=== PATIENT | male | born 1935 | race Caucasian/White ===

== ENCOUNTER 2018-08-26 01:56 | Emergency (ER) | payer OTHER ==
[2018-08-26 02:40] LABS: Absolute Lymphocytes (CBC) 0.9 K/uL (0.7-4.9); Absolute Monocytes 0.2 K/uL (0.1-1.3); Absolute Neutrophil 4.6 K/uL (1.8-8.0); Basophils % 1.7 % (0-1.3); Eosinophils % 1.2 % (0-4.4); Hematocrit 43.5 % (39.6-49.0); Lymphocytes % 14.5 % (15.3-44.8); MPV 8.6 fL (7.6-11.3); Monocytes % 4.1 % (3.3-12.3); RBC Red Blood Cell Count 4.99 M/uL (4.33-5.43)
[2018-08-26] MEDS ORDERED: ONDANSETRON 4 MG/2 ML VIAL ONE (02:46)
[2018-08-26 02:53] LABS: Protime INR 1.03
[2018-08-26] MEDS ORDERED: FAMOTIDINE 20 MG/2 ML VIAL IV ONE (02:55)
[2018-08-26] MEDS ORDERED: NA CHLORIDE 0.9% 1,000 ML ONE (02:55)
[2018-08-26 03:07] LABS: Alkaline Phosphatase 244 U/L (45-117); BUN Blood Urea Nitrogen 23 mg/dL (7-18); Bicarbonate 25 mmol/L (21-32); Bilirubin Direct 0.9 mg/dL (0-0.2); Bilirubin Total 1.7 mg/dL (0.2-1.0); Glucose Level 160 mg/dL (74-106); Lipase 58 U/L (73-393); Magnesium 2.1 mg/dL (1.8-2.4); NT PRO-BNP 1473 pg/mL (<450); Protein, Total 8.2 g/dL (6.4-8.2); Sodium Level 137 mmol/L (136-145); Troponin (Emerg Dept Use Only) < 0.02 ng/mL (0.0-0.045)
[2018-08-26 03:09] LABS: ALT/SGPT 439 U/L (12-78); AST/SGOT 602 U/L (15-37)
--- NOTE | 2018-08-26 03:18 | EDPHYS ---
Physician Documentation [facility] Name: Josue Saucedo Age: 82 yrs Sex: Male : 1935 Arrival Date: 08/26/2018 Time: 01:57 Bed 8 Private MD: ED Physician Donnie Piña HPI: 08/26 02:42 This 82 yrs old Male presents to ER via Wheelchair with complaints of Chest luis angel Pain. 02:42 The patient or guardian reports chest pain that is located primarily in the epigastric luis angel area. Onset: last night. The pain does not radiate. Associated signs and symptoms: The patient has no apparent associated signs or symptoms. The chest pain is described as aching. Duration: The patient or guardian reports a single episode, that is still ongoing, and unchanged. Modifying factors: The symptoms are alleviated by nothing. the symptoms are aggravated by nothing. Severity of pain: At its worst the pain was mild moderate in the emergency department the pain is unchanged. The patient has not experienced similar symptoms in the past. Historical: - Allergies: 02:11 No Known Allergies; ak1 - Home Meds: 02:19 amlodipine 10 mg tab 1 tab once daily [Active]; aspirin 81 mg Oral chew 1 tab once ak1 daily [Active]; atorvastatin 40 mg Oral tab 1 tab bedtime [Active]; hydralazine 25 mg Oral tab 1 tab 2 times per day [Active]; lactulose 10 gram/15 mL (15 mL) Oral soln 15 mL PRN [Active]; nitroglycerin 0.4 mg SL subl 1 tab PRN [Active]; terazosin 2 mg Oral cap 1 cap bedtime [Active]; zolpidem 5 mg Oral tab 1 tab bedtime [Active]; Metoprolol Tartrate Oral PRN [Active]; Plavix 75 mg Oral tab 1 tab once daily [Active]; - PMHx: 02:11 CAD; Hypertension; Myocardial infarction; High Cholesterol; ak1 - PSHx: 02:11 Heart stents; bilateral knee replacements; prostate; left eye sx; left middle finger ak1 amputation.; - Immunization history:: Adult Immunizations up to date. - Social history:: Smoking status: Patient/guardian denies using tobacco. - Ebola Screening: : No symptoms or risks identified at this time. - Family history:: not pertinent. ROS: 02:42 Constitutional: Negative for fever, chills, and weight loss, Eyes: Negative for injury, luis angel pain, redness, and discharge, ENT: Negative for injury, pain, and discharge, Neck: Negative for injury, pain, and swelling, Respiratory: Negative for shortness of breath, cough, wheezing, and pleuritic chest pain, Back: Negative for injury and pain, : Negative for injury, bleeding, discharge, and swelling, MS/Extremity: Negative for injury and deformity, Skin: Negative for injury, rash, and discoloration, Neuro: Negative for headache, weakness, numbness, tingling, and seizure, Psych: Negative for depression, anxiety, suicide ideation, homicidal ideation, and hallucinations, Allergy/Immunology: Negative for hives, rash, and allergies, Endocrine: Negative for neck swelling, polydipsia, polyuria, polyphagia, and marked weight changes, Hematologic/Lymphatic: Negative for swollen nodes, abnormal bleeding, and unusual bruising. 02:42 Cardiovascular: Positive for 02:42 Abdomen/GI: Positive for abdominal pain, nausea, vomiting, of the epigastric area, right upper quadrant and left upper quadrant. Exam: 02:42 Constitutional: This is a well developed, well nourished patient who is awake, alert, luis angel and in no acute distress. Head/Face: Normocephalic, atraumatic. Eyes: Pupils equal round and reactive to light, extra-ocular motions intact. Lids and lashes normal. Conjunctiva and sclera are non-icteric and not injected. Cornea within normal limits. Periorbital areas with no swelling, redness, or edema. ENT: Nares patent. No nasal discharge, no septal abnormalities noted. Tympanic membranes are normal and external auditory canals are clear. Oropharynx with no redness, swelling, or masses, exudates, or evidence of obstruction, uvula midline. Mucous membranes moist. Neck: Trachea midline, no thyromegaly or masses palpated, and no cervical lymphadenopathy. Supple, full range of motion without nuchal rigidity, or vertebral point tenderness. No Meningismus. Chest/axilla: Normal chest wall appearance and motion. Nontender with no deformity. No lesions are appreciated. Respiratory: Lungs have equal breath sounds bilaterally, clear to auscultation and percussion. No rales, rhonchi or wheezes noted. No increased work of breathing, no retractions or nasal flaring. Back: No spinal tenderness. No costovertebral tenderness. Full range of motion. Male : Normal genitalia with no discharge or lesions. Skin: Warm, dry with normal turgor. Normal color with no rashes, no lesions, and no evidence of cellulitis. MS/ Extremity: Pulses equal, no cyanosis. Neurovascular intact. Full, normal range of motion. Neuro: Awake and alert, GCS 15, oriented to person, place, time, and situation. Cranial nerves II-XII grossly intact. Motor strength 5/5 in all extremities. Sensory grossly intact. Cerebellar exam normal. Normal gait. Psych: Awake, alert, with orientation to person, place and time. Behavior, mood, and affect are within normal limits. 02:42 Cardiovascular: Rate: tachycardic, Rhythm: irregularly irregular, Pulses: Pulses are 4+ in bilateral radial, brachial, femoral, popliteal, posterior tibial and and dorsalis pedis arteries.. Heart sounds: normal, Edema: is not appreciated, JVD: is not appreciated. Vital Signs: 02:11 BP 145 / 75; Pulse 103; Resp 20; Temp 97.6(O); Pulse Ox 97% on R/A; Weight 95.25 kg ak1 (R); Height 5 ft. 5 in. (165.10 cm) (R); Pain 5/10; 02:33 BP 145 / 76; Pulse 106; Resp 22; Temp 99; Pulse Ox 96% on R/A; ak1 03:06 BP 154 / 81; Pulse 103; Resp 25; Temp 99.4; Pulse Ox 97% on 2 lpm NC; ak1 05:48 BP 120 / 72; Pulse 102; Resp 20; Temp 99.6; Pulse Ox 97% on 2 lpm NC; ak1 02:11 Body Mass Index 34.95 (95.25 kg, 165.10 cm) ak1 MDM: 02:35 Patient medically screened. [facility] 02:47 Data reviewed: vital signs, nurses notes, lab test result(s), EKG, radiologic studies, [facility] CT scan, plain films. 08/26 02:11 Order name: Basic Metabolic Panel; Complete Time: 03:11 ms 08/26 02:11 Order name: CBC with Diff; Complete Time: 03:11 ms 08/26 02:11 Order name: LFT's; Complete Time: 03:11 ms 08/26 02:11 Order name: Magnesium; Complete Time: 03:11 ms 08/26 02:11 Order name: NT PRO-BNP; Complete Time: 03:11 ms 08/26 02:11 Order name: PT-INR; Complete Time: 03:11 ms 08/26 02:11 Order name: Troponin (emerg Dept Use Only); Complete Time: 03:11 ms 08/26 02:11 Order name: XRAY Chest (1 view) ut 08/26 02:42 Order name: Urine Culture [facility] 08/26 02:42 Order name: CT Abd/Pelvis - W/Contrast [facility] 08/26 02:55 Order name: Lipase; Complete Time: 03:11 EDMS 08/26 02:11 Order name: EKG; Complete Time: 02:11 ms 08/26 02:11 Order name: Cardiac monitoring; Complete Time: 02:11 ms 08/26 02:11 Order name: EKG - Nurse/Tech; Complete Time: 02:11 ms 08/26 02:11 Order name: IV Saline Lock; Complete Time: 02:11 ms 08/26 02:11 Order name: Labs collected and sent; Complete Time: 02:11 ms 08/26 02:11 Order name: O2 Per Protocol; Complete Time: 02:11 ms 08/26 02:11 Order name: O2 Sat Monitoring; Complete Time: 02:11 ms 08/26 02:12 Order name: Urine Dipstick-Ancillary (obtain specimen); Complete Time: 04:41 ms Administered Medications: 02:39 Drug: Zofran 4 mg Route: IVP; Site: right antecubital; ak1 02:40 Follow up: Response: No adverse reaction ak1 02:51 Drug: Pepcid 20 mg Route: IVP; Site: right antecubital; ak1 02:51 Follow up: Response: No adverse reaction ak1 02:51 Drug: NS 0.9% 1000 ml Route: IV; Rate: 125 ml/hr; Site: right antecubital; ak1 05:50 Follow up: IV Status: Infusion continued upon transfer ak1 03:26 Drug: Zosyn 3.375 grams Route: IVPB; Infused Over: 60 mins; Site: right antecubital; ak1 05:50 Follow up: IV Status: Completed infusion; IV Intake: 100ml ak1 Disposition: 08/26/18 03:17 Transfer ordered to [facility]. Diagnosis are Abdominal tenderness, Cholecystitis, Cholelithiasis. - Reason for transfer: Higher level of care. - Accepting physician is to [facility]. - Condition is Stable. - Problem is new. - Symptoms have improved. Signatures: Dispatcher [employer] EDMN Donnie Piña MD MD cha Solis, Maria ms Krenek, Amber, RN RN ak1 Corrections: (The following items were deleted from the chart) 02:55 02:42 LIPASE+C.LAB.BRZ ordered. [facility] EDMN 06:47 03:17 08/26/2018 03:17 Transfer ordered to [facility]. Diagnosis is ak1 Abdominal tenderness; Cholecystitis; Cholelithiasis. Reason for transfer: Higher level of care. Accepting physician is to [facility]. Condition is Stable. Problem is new. Symptoms have improved. luis angel
--- NOTE | 2018-08-26 03:18 | ER ---
Nurse's Notes [facility] Name: Josue Saucedo Age: 82 yrs Sex: Male : 1935 Arrival Date: 08/26/2018 Time: 01:57 Bed 8 Private MD: Diagnosis: Abdominal tenderness;Cholecystitis;Cholelithiasis Presentation: 08/26 02:07 Presenting complaint: Patient states: upper abd pain since 1999. pt denies N/V/D. ak1 Transition of care: patient was not received from another setting of care. Onset of symptoms was August 26, 2018. Risk Assessment: Do you want to hurt yourself or someone else? Patient reports no desire to harm self or others. Initial Sepsis Screen: Does the patient meet any 2 criteria? No. Patient's initial sepsis screen is negative. Does the patient have a suspected source of infection? No. Patient's initial sepsis screen is negative. Care prior to arrival: None. 02:07 Method Of Arrival: Wheelchair ak1 02:07 Acuity: LAMINE 3 ak1 02:21 Note pt took 0.4SL nitro at 0100. ak1 Triage Assessment: 02:19 General: Appears uncomfortable, Behavior is calm, cooperative. Pain: Pain began 1999 ak1 tonight. pt took 0.4 SL nitro at 0100. EENT: No signs and/or symptoms were reported regarding the EENT system. Neuro: No deficits noted. Cardiovascular: Reports upper abd pain. pt took 0.4 SL nitro at 0100. Respiratory: No deficits noted. GI: Abdomen is round non-distended, Bowel sounds present X 4 quads. Abd is soft and non tender X 4 quads. Patient currently denies constipation, diarrhea, nausea, vomiting. : No signs and/or symptoms were reported regarding the genitourinary system. Derm: No signs and/or symptoms reported regarding the dermatologic system. Musculoskeletal: No signs and/or symptoms reported regarding the musculoskeletal system. Historical: - Allergies: 02:11 No Known Allergies; ak1 - Home Meds: 02:19 amlodipine 10 mg tab 1 tab once daily [Active]; aspirin 81 mg Oral chew 1 tab once ak1 daily [Active]; atorvastatin 40 mg Oral tab 1 tab bedtime [Active]; hydralazine 25 mg Oral tab 1 tab 2 times per day [Active]; lactulose 10 gram/15 mL (15 mL) Oral soln 15 mL PRN [Active]; nitroglycerin 0.4 mg SL subl 1 tab PRN [Active]; terazosin 2 mg Oral cap 1 cap bedtime [Active]; zolpidem 5 mg Oral tab 1 tab bedtime [Active]; Metoprolol Tartrate Oral PRN [Active]; Plavix 75 mg Oral tab 1 tab once daily [Active]; - PMHx: 02:11 CAD; Hypertension; Myocardial infarction; High Cholesterol; ak1 - PSHx: 02:11 Heart stents; bilateral knee replacements; prostate; left eye sx; left middle finger ak1 amputation.; - Immunization history:: Adult Immunizations up to date. - Social history:: Smoking status: Patient/guardian denies using tobacco. - Ebola Screening: : No symptoms or risks identified at this time. - Family history:: not pertinent. Screenin:21 Abuse screen: Denies threats or abuse. Denies injuries from another. Nutritional ak1 screening: No deficits noted. Tuberculosis screening: No symptoms or risk factors identified. Fall Risk None identified. Assessment: 02:22 Pain: Pain does not radiate. ak1 02:22 Reassessment: Patient appears in no apparent distress at this time. No changes from ak1 previously documented assessment. see triage assessment. 02:39 Reassessment: pt began vomiting, ERP notified and at beside for assessment. ak1 03:27 Reassessment: pt drinking oral contrast. ak1 04:01 Reassessment: pt in CT. ak1 05:49 Reassessment: Patient appears in no apparent distress at this time. No changes from ak1 previously documented assessment. Patient and/or family updated on plan of care and expected duration. Pain level reassessed. Patient is alert, oriented x 3, equal unlabored respirations, skin warm/dry/pink. Patient states symptoms have improved. Vital Signs: 02:11 BP 145 / 75; Pulse 103; Resp 20; Temp 97.6(O); Pulse Ox 97% on R/A; Weight 95.25 kg ak1 (R); Height 5 ft. 5 in. (165.10 cm) (R); Pain 5/10; 02:33 BP 145 / 76; Pulse 106; Resp 22; Temp 99; Pulse Ox 96% on R/A; ak1 03:06 BP 154 / 81; Pulse 103; Resp 25; Temp 99.4; Pulse Ox 97% on 2 lpm NC; ak1 05:48 BP 120 / 72; Pulse 102; Resp 20; Temp 99.6; Pulse Ox 97% on 2 lpm NC; ak1 02:11 Body Mass Index 34.95 (95.25 kg, 165.10 cm) ak1 ED Course: 01:57 Patient arrived in ED. ag3 02:07 Neha Jang, RN is Primary Nurse. ak1 02:07 Triage completed. ak1 02:11 Arm band placed on Patient placed in an exam room, on a stretcher, Patient notified of ak1 wait time. EKG completed in triage. Results shown to MD. 02:14 Inserted saline lock: 20 gauge in right antecubital area, using aseptic technique. ea Blood collected. 02:19 EKG done, by ED staff. Patient maintains SpO2 saturation greater than 95% on room air. ak1 02:22 Patient has correct armband on for positive identification. Placed in gown. Bed in low ak1 position. Call light in reach. Side rails up X 1. Adult w/ patient. monitoring and evaluation advisor on. Pulse ox on. NIBP on. Door closed. Warm blanket given. 02:24 X-ray completed. Portable x-ray completed in exam room. Patient tolerated procedure kw well. 02:25 XRAY Chest (1 view) In Process Unspecified. EDMS 02:32 Donnie Piña MD is Attending Physician. [facility] 03:10 Notified ED physician of a critical lab result(s). AST \T\ ALT. jd3 03:56 CT Abd/Pelvis - W/Contrast In Process Unspecified. EDMS 04:09 CT completed. Patient tolerated procedure well. Patient moved to CT via stretcher. vm2 Patient moved back from CT. 04:22 No provider procedures requiring assistance completed. Patient transferred, IV remains ak1 in place. Administered Medications: 02:39 Drug: Zofran 4 mg Route: IVP; Site: right antecubital; ak1 02:40 Follow up: Response: No adverse reaction ak1 02:51 Drug: Pepcid 20 mg Route: IVP; Site: right antecubital; ak1 02:51 Follow up: Response: No adverse reaction ak1 02:51 Drug: NS 0.9% 1000 ml Route: IV; Rate: 125 ml/hr; Site: right antecubital; ak1 05:50 Follow up: IV Status: Infusion continued upon transfer ak1 03:26 Drug: Zosyn 3.375 grams Route: IVPB; Infused Over: 60 mins; Site: right antecubital; ak1 05:50 Follow up: IV Status: Completed infusion; IV Intake: 100ml ak1 Intake: 05:50 IV: 100ml; Total: 100ml. ak1 Outcome: 03:17 ER care complete, transfer ordered by MD. plasencia 06:47 Patient left the ED. ak1 Signatures: Dispatcher [employer] EDMS Donnie Piña MD MD cha Whitley, Kimberlee kw Krenek, Amber RN RN ak1 Megha Farrar Elena, RN RN ea Davies, Jonathon, RN RN jd3 Gomez, Alice ag3
[2018-08-26] MEDS ORDERED: PIPER/TAZO/NS 3.375gm 3.375 GM/100 ML BAG ONE (03:24)
--- NOTE | 2018-08-26 06:25 | EKG ---
Test Date: 2018-08-26 Test Time: 02:07:10 Chimney Mechanic: MEASUREMENT RESULTS: Intervals: Rate: 92 [place]: QRSD: 134 QT: 376 QTc: 464 [place]: P: [place]: QRS: -37 T: 0 INTERPRETIVE STATEMENTS: Atrial flutter with variable AV block with premature ventricular or aberrantly conducted complexes Left axis deviation Nonspecific intraventricular block Inferior infarct, age undetermined Cannot rule out Anterior infarct, age undetermined Abnormal ECG Compared to ECG 07/20/2016 05:31:15 Ventricular premature complex(es) now present Sinus bradycardia no longer present First degree AV block no longer present ST (T wave) deviation no longer present Possible ischemia no longer present Myocardial infarct finding still present Electronically Signed On 08-26-18 06:24:39 MINE EXPLORATION ENGINEER by Cj Pizano
[2018-08-26 06:58] VITALS: O2SAT 97
[2018-08-26 06:59] VITALS: BP 120/72; TEMP 99.6
--- NOTE | 2018-08-26 08:44 | RAD REPORT ---
EXAM DESCRIPTION: CT - Abdomen Pelvis W Contrast - 08/26/2018 3:55 am CLINICAL HISTORY: Abdominal pain with nausea. COMPARISON: May 2018 TECHNIQUE: Computed axial tomography of the abdomen pelvis was obtained. 100 cc Isovue-300 was admin istered intravenously. Oral contrast was given. Preliminary report generated by virtual radiologic an d reviewed prior to dictation All CT scans are performed using dose optimization technique as appropriate and may include automated exposure control or mA/KV adjustment according to patient size. FINDINGS: The liver, spleen, pancreas, adrenal and kidneys appear unremarkable. Diverticula stem from the colon. Minimal stranding is seen adjacent to the distal sigmoid colon Gallstones without gallbladder wall thickening. Small hiatal hernia. Contrast in the esophagus indicates GE reflux. Mild enlargement prostate gland. Small left inguinal hernia IMPRESSION: Minimal sigmoid diverticulitis. Exam was discussed with Dr. Cadena in the Emergency claudia at 8:40 a.m. August 26, 2018
--- NOTE | 2018-08-26 09:13 | RAD REPORT ---
EXAM DESCRIPTION: Kyleigh Single View08/26/2018 2:26 am CLINICAL HISTORY: Chest pain COMPARISON: 2016 FINDINGS: The lungs appear clear of acute infiltrate. The heart is moderately enlarged. Aorta is tortuous/ectatic IMPRESSION: No acute abnormalities displayed
== END 2018-08-26 06:47 | disposition short-term general hospital (02) ==
LOC: ER 01:56
DX: K80.10 Calculus of gallbladder with chronic cholecystitis without obstruction (principal); I10 Essential (primary) hypertension; I25.2 Old myocardial infarction; E78.00 Pure hypercholesterolemia, unspecified; Z79.01 Long term (current) use of anticoagulants; Z79.82 Long term (current) use of aspirin; Z95.818 Presence of other cardiac implants and grafts
CPT/HCPCS: 36415; 71045; 74177; 80048; 80076; 83690; 83735; 83880; 84484; 85025; 85610; 87086; 87088; 93005; 96361; 96365; 96366; 96375; 99285; J2405; J2543; J7030; Q9967